=== PATIENT | male | born 1985 | race Caucasian/White ===

== ENCOUNTER 2017-03-17 08:54 | Emergency (ER) | payer OTHER ==
[2017-03-17 12:13] VITALS: BP 115/71
== END 2017-03-17 12:13 | disposition home or self-care (01) ==
LOC: ED 08:54
DX: M75.41 Impingement syndrome of right shoulder (principal)
CPT/HCPCS: J1170; J1885; Q0162

== ENCOUNTER 2019-03-04 09:38 | Emergency (ER) | payer SELFPAY ==
[~2019-03-04] VITALS: Ht 170.2 cm; Wt 88.9 kg
[2019-03-04 09:48] VITALS: Ht 170.2 cm; Wt 88.9 kg
[2019-03-04 11:45] VITALS: BP 134/89
== END 2019-03-04 11:45 | disposition home or self-care (01) ==
LOC: ED 09:38
DX: S62.303A Unspecified fracture of third metacarpal bone, left hand, initial encounter for closed fracture (principal); X58.XXXA Exposure to other specified factors, initial encounter; Y93.89 Activity, other specified; Y92.89 Other specified places as the place of occurrence of the external cause; Y99.8 Other external cause status
CPT/HCPCS: Q0092

== ENCOUNTER 2019-05-27 22:31 | Emergency (ER) | payer OTHER ==
[~2019-05-27] VITALS: Ht 170.2 cm; Wt 90.3 kg
[2019-05-27 22:33] VITALS: Ht 170.2 cm; Wt 90.3 kg
[2019-05-27 23:51] VITALS: BP 145/88
== END 2019-05-27 23:51 | disposition home or self-care (01) ==
LOC: ED 22:31
DX: S01.81XA Laceration without foreign body of other part of head, initial encounter (principal); W18.09XA Striking against other object with subsequent fall, initial encounter; Y93.89 Activity, other specified; Y92.89 Other specified places as the place of occurrence of the external cause; Y99.8 Other external cause status
CPT/HCPCS: J2001

== ENCOUNTER 2019-06-08 17:47 | Emergency (ER) | payer OTHER ==
[~2019-06-08] VITALS: Ht 170.2 cm; Wt 90.7 kg
[2019-06-08 18:11] VITALS: Ht 170.2 cm; Wt 90.7 kg
[2019-06-08 18:50] VITALS: BP 124/90
== END 2019-06-08 18:50 | disposition home or self-care (01) ==
LOC: ED 17:47
DX: S01.81XD Laceration without foreign body of other part of head, subsequent encounter (principal); X58.XXXD Exposure to other specified factors, subsequent encounter